=== PATIENT | female | born 2000 | race Caucasian/White ===

== ENCOUNTER 2024-11-07 14:54 | Emergency (ER) | payer OTHER, SELFPAY ==
[2024-11-07 15:02] VITALS: BP 128/80; PULSE 76; TEMP 36.8; O2SAT 97; BMI 34.2
--- NOTE | 2024-11-07 15:13 | ED.GENADUL1 ---
HPI HPI - General Adult General Chief complaint: Skin/Abscess/Foreign Body Stated complaint: NEEDS TICK REMOVED OFF SCALP Time Seen by Provider: 11/07/24 14:58 Source: patient Mode of arrival: walk-in Limitations: no limitations History of Present Illness HPI narrative: 24-year-old female presents because she found a tick in her hair. It has been there since earlier today and it definitely was not there last night. She has no symptoms other than the presence. Nursing staff took it out of her hair at triage and reported that it was barely on her skin. It came off with almost no effort. Related Data Home Medications ?Medication ?Instructions ?Recorded ?Confirmed multivitamin no.47-iron fum 27 1 cap PO DAILY 11/07/24 11/07/24 mg-folate no.1 1 mg-dha 300 mg capsule (PNV-DHA) Allergies Allergy/AdvReac Type Severity Reaction Status Date / Time No Known Drug Allergies Allergy Verified 11/07/24 15:01 Opioid HPI Opioid Management Most Recent Opioid Data: Last Pain Scale 0 Today, 15:10 Review of Systems ROS Narrative A ten point review of systems is negative except as noted above. PFSH PFSH Social History Little interest or pleasure in doing things: not at all Feeling down, depressed, or hopeless: not at all Exam Narrative Exam Narrative: Nurses note and vital signs reviewed and patient is not hypoxic. General: The patient appears well and in no apparent distress. Patient is resting comfortably on cart. Skin: Warm, dry, no pallor noted. There is no rash noted. Head: Normocephalic, atraumatic Eye: Normal conjunctiva, no drainage Ears, Nose, Mouth, and Throat: oral mucosa is moist. Nares patent. Cardiovascular: Regular Rate and Rhythm Respiratory: Patient is in no distress, no accessory muscle use Back: non-tender GI: Soft and nontender Musculoskeletal: No joint swelling Neurological: A&O, normal speech Psychiatric: Cooperative Constitutional Vital Signs, click to edit/add: Last Vital Signs Temp 98.2 F 11/07/24 15:02 Pulse 76 11/07/24 15:02 Resp 16 11/07/24 15:02 BP 128/80 11/07/24 15:02 Pulse Ox 97 11/07/24 15:02 O2 Del Method Room Air 11/07/24 15:02 Course Vital Signs Vital signs: Vital Signs Temperature 98.2 F 11/07/24 15:02 Pulse Rate 76 11/07/24 15:02 Respiratory Rate 16 11/07/24 15:02 Blood Pressure 128/80 11/07/24 15:02 Pulse Oximetry 97 11/07/24 15:02 Oxygen Delivery Method Room Air 11/07/24 15:02 Temperature 98.2 F 11/07/24 15:02 Pulse Rate 76 11/07/24 15:02 Respiratory Rate 16 11/07/24 15:02 Blood Pressure 128/80 11/07/24 15:02 Pulse Oximetry 97 11/07/24 15:02 Oxygen Delivery Method Room Air 11/07/24 15:02 Medical Decision Making MDM Narrative Medical decision making narrative: The patient is breast-feeding and the tech has been on her since earlier today and was not even attached to her skin. On physical exam there are no findings. Doxycycline is not indicated at this point. Treatment diagnosis and follow-up were discussed with the patient. Differential Diagnosis Differential Diagnosis: Tick bite Discharge Plan Discharge Chief Complaint: Skin/Abscess/Foreign Body Clinical Impression: Tick bite Patient Disposition: Home, Self-Care Time of Disposition Decision: 15:13 Condition: Good Mode of Transportation: Private Vehicle Prescriptions / Home Meds: No Action PNV-DHA 27 mg iron-1 mg -300 mg capsule 1 cap PO DAILY Print Language: Upper Sorbian Instructions: Tick Bite (ED)
== END 2024-11-07 15:28 | disposition home or self-care (01) ==
LOC: ER 15:20
PROVIDERS: Emergency Provider Emergency Medicine
DX: S00.06XA Insect bite (nonvenomous) of scalp, initial encounter (principal); W57.XXXA Bitten or stung by nonvenomous insect and other nonvenomous arthropods, initial encounter
CPT/HCPCS: 99281

== ENCOUNTER 2025-01-31 17:22 | Emergency (ER) | payer OTHER, SELFPAY ==
[2025-01-31 17:53] VITALS: BP 136/74; PULSE 70; TEMP 36.9; O2SAT 98; BMI 34.7
--- NOTE | 2025-02-01 08:05 | ED_ITS ---
HPI HPI - General Adult General Chief complaint: Skin/Abscess/Foreign Body Stated complaint: BEE BITE Time Seen by Provider: 01/31/25 18:08 Source: patient Mode of arrival: walk-in Limitations: no limitations History of Present Illness HPI narrative: Patient is a healthy 24-year-old female presenting to the emergency department for evaluation of a bee sting. Patient states she was stung by a bee on her left forearm 3 days ago. Since then, she has had worsening redness, itchiness, and swelling around the site. She denies any significant pain associated with it. She says there is some clear drainage, but no pus from the site. She denies fevers or chills, or any other systemic symptoms. She denies nausea or vomiting. No difficulty breathing or facial swelling. No chest pain or shortness of breath. She states something like this happened one time in the past when she was bit by mosquito. She is currently breast-feeding, has a 1-month-old at home. Related Data Home Medications ?Medication ?Instructions ?Recorded ?Confirmed multivitamin no.47-iron fum 27 1 cap PO DAILY 11/07/24 01/31/25 mg-folate no.1 1 mg-dha 300 mg capsule (PNV-DHA) Previous Rx's ?Medication ?Instructions ?Recorded cephalexin 500 mg capsule 500 mg PO BID 7 days #14 cap s 01/31/25 Allergies Allergy/AdvReac Type Severity Reaction Status Date / Time No Known Drug Allergies Allergy Verified 01/31/25 17:53 Opioid HPI Opioid Management Most Recent Opioid Data: Last Pain Scale 1 01/31/25, 17:53 Review of Systems ROS Status of ROS 10 or more systems reviewed and unremark able except as noted in history and below PFSH PFSH Social History Little interest or pleasure in doing things: not at all Feeling down, depressed, or hopeless: not at all Exam Narrative Exam Narrative: CONSTITUTIONAL: Well-appearing, answering questions and following commands appropriately SKIN: There is an approximately 4 x 4 centimeter area of erythema on the left anterior forearm about the area of the antecubital fossa. There is no purulent drainage. There is no induration, crepitus, or fluctuance. No visualized foreign bodies. EYES: Sclerae white. EARS, NOSE, THROAT: Moist oral mucosa. No lip or tongue swelling. RESPIRATORY: Nonlabored respirations without audible wheezing or stridor. CARDIOVASCULAR: Normal rate and regular rhythm. 2+ radial pulse on the left GASTROINTESTINAL: Abdomen is nondistended. MUSCULOSKELETAL: No peripheral edema. NEUROLOGIC: Patient is awake and alert. Facies were symmetrical. Constitutional Vital Signs, click to edit/add: Last Vital Signs Temp 98.5 F 01/31/25 17:53 Pulse 70 01/31/25 17:53 Resp 16 01/31/25 17:53 BP 136/74 01/31/25 17:53 Pulse Ox 98 01/31/25 17:53 O2 Del Method Room Air 01/31/25 17:53 Course Vital Signs Vital signs: Vital Signs Temperature 98.5 F 01/31/25 17:53 Pulse Rate 70 01/31/25 17:53 Respiratory Rate 16 01/31/25 17:53 Blood Pressure 136/74 01/31/25 17:53 Pulse Oximetry 98 01/31/25 17:53 Oxygen Delivery Method Room Air 01/31/25 17:53 Temperature 98.5 F 01/31/25 17:53 Pulse Rate 70 01/31/25 17:53 Respiratory Rate 16 01/31/25 17:53 Blood Pressure 136/74 01/31/25 17:53 Pulse Oximetry 98 01/31/25 17:53 Oxygen Delivery Method Room Air 01/31/25 17:53 Medical Decision Making MDM Narrative Medical decision making narrative: Patient is a 24-year-old healthy female presenting to the emergency department for evaluation of worsening erythema, pruritus, and swelling of the left forearm where she was stung by bee 3 days ago. Her vital signs arrival are within normal limits. She is afebrile and hemodynamically stable. Examination as noted above. My clinical impression that the patient's presentation is secondary to localized skin reaction/delayed hypersensitivity reaction to the bee sting. There is no induration, tenderness, purulent drainage, or crepitus to suggest cellulitis. I recommended the patient take Benadryl at home for symptoms, and it should improve spontaneously. However, I did prescribe her a 5-day course of Keflex 500 mg twice daily should her symptoms worsen. She was instructed to follow-up with her PCP should her symptoms persist. Return precautions were given for any new or concerning symptoms. Patient understands and agrees to the plan. FINAL IMPRESSION: #Acute localized allergic reaction to bee sting DISPOSITION: Discharged home CONDITION: Good Discharge Plan Discharge Chief Complaint: Skin/Abscess/Foreign Body Clinical Impression: Allergic reaction to bee sting Patient Disposition: Home, Self-Care Time of Disposition Decision: 18:14 Condition: Good Mode of Transportation: Private Vehicle Prescriptions / Home Meds: New cephalexin 500 mg capsule 500 mg PO BID 7 Days Qty: 14 0RF No Action PNV-DHA 27 mg iron-1 mg -300 mg capsule 1 cap PO DAILY Print Language: Gambian Instructions: Insect Bite or Sting (ED) Referrals: [facility] [Primary Care Provider] - 1 week Discharge Date/Time: 01/31/25 18:40
== END 2025-01-31 18:40 | disposition home or self-care (01) ==
PROVIDERS: Emergency Provider Student in an Organized Health Care Education/Training Program
DX: T63.441A Toxic effect of venom of bees, accidental (unintentional), initial encounter (principal); M79.89 Other specified soft tissue disorders
CPT/HCPCS: 99283